=== PATIENT | male | born 1975 | race Caucasian/White ===

== ENCOUNTER 2018-10-16 05:24 | Emergency (ER) | payer MEDICAID ==
[~2018-10-16] VITALS: Ht 175.3 cm; Wt 68.0 kg
[2018-10-16 05:30] VITALS: BP_SYST 135
[2018-10-16] MEDS ORDERED: MORPHINE 4 MG/ML INJ. SYRINGE IM ONE (05:45)
[2018-10-16] MEDS ORDERED: LIDOCAINE/EPI 1% 1:100000 20 ML VIAL INJ ONE ×2 (06:29→06:45)
[2018-10-16] MEDS ORDERED: HYDROcodone/ACETAMIN 5-325 MG TAB (NORCO/ VICODIN) PO ONE (06:45)
[2018-10-16] MEDS ORDERED: SULFAMETHOXAZOLE/TRIMETHOPR DS 1 TABLET PO ONE (07:15)
[2018-10-16] MEDS ORDERED: DIPH-TET-PERTUS Vaccine 0.5 ML VIAL (ADACEL) I.M. ONE ×2 (07:15→08:24)
[2018-10-16] MEDS ORDERED: CEPHALEXIN 500 MG CAPSULE PO ONE (07:15)
[2018-10-16] MEDS ORDERED: BACITRACIN 1 GM OINT TP ONE (07:34)
[2018-10-16 08:27] VITALS: BP_SYST 108
== END 2018-10-16 08:27 | disposition home or self-care (01) ==
LOC: SED 05:24
DX: S01.01XA Laceration without foreign body of scalp, initial encounter (principal); W18.09XA Striking against other object with subsequent fall, initial encounter; Y93.89 Activity, other specified; Y92.89 Other specified places as the place of occurrence of the external cause; Y99.8 Other external cause status
CPT/HCPCS: 12002; 70450; 90471; 90715; 96372; 99284; J2270